=== PATIENT | female | born 1970 | race Caucasian/White ===

== ENCOUNTER 2017-03-08 10:18 | Emergency (ER) | payer BC, OTHER ==
[2017-03-08] MEDS ORDERED: SODIUM CHLORIDE 0.9% 500 ML IV STA (10:50)
[2017-03-08] MEDS ORDERED: SODIUM CHLORIDE 0.9% 1,000 ML IV STA (10:50)
[2017-03-08 11:32] LABS: Basophils % (A) 1 %; Eosinophils # (A) 0.1 k/uL (0-0.7); Eosinophils % (A) 3 %; HCT 27.8 % (34.0-46.0); HGB 7.5 gm/dL (11.4-16.0); Hypochromasia Marked; Lymphocytes # (A) 1.1 k/uL (1.0-4.8); Lymphocytes % (A) 40 %; MCHC 27.1 g/dL (31.0-37.0); MCV 73.8 fL (80.0-100.0); Mean Platelet Volume 6.3; Microcytosis Slight; Monocytes # (A) 0.2 k/uL (0-1.0); Monocytes % (A) 6 %; Neutrophils # (A) 1.2 k/uL (1.3-7.7); Neutrophils % (A) 47 %; Platelet Count 412 k/uL (150-450); RBC 3.77 m/uL (3.80-5.40); WBC 2.6 k/uL (3.8-10.6)
--- NOTE | 2017-03-08 11:32 | ED ---
General Adult HPI - General Chief complaint: Recheck/Abnormal Lab/Rx Stated complaint: LOW HEMOGLOBIN Time Seen by Provider: 03/08/17 10:41 Source: patient Mode of arrival: ambulatory Limitations: no limitations - History of Present Illness Initial comments: This 46-year-old white female presents with a complaint of anemia. She states that for the past several weeks she is felt very tired and will have occasional exertional dyspnea. She does have a history of anemia with previous blood transfusion back in 2016. She states that her hemoglobin was approximately 10.5 and Darshana of this past year. She followed up with her doctor and had blood work done 2 days ago and her hemoglobin apparently was 7.7 at that time and she was told to come to the ER yesterday. She denies any blood in her stools or black tarry stools. She states that her stool color is usually green. She was placed on iron pills. She initially was on them 3 times a day but now is on them 2 times a day. She states that she thinks that she had a presumed iron deficiency anemia. She is unsure if she is ever been checked for B12 deficiency. She's never received the B12 shots or pills. She has never followed up with a tinner helper. She does have a history of a gastric sleeve surgery. No other complaints or modifying factors. - Related Data Home Medications Medication Instructions Recorded Confirmed Albuterol Sulfate [Proventil Hfa] 2 puff INHALATION RT-Q6H PRN 12/02/15 03/08/17 Butalb/APAP/Caff 50-325-40Mg 1 tab PO TID PRN 12/02/15 03/08/17 [Fioricet 50-325-40] Venlafaxine HCl ER [Effexor XR] 150 mg PO DAILY 12/02/15 03/08/17 Zolpidem [Ambien] 5 mg PO HS 12/02/15 03/08/17 Melatonin 10 mg PO HS 02/22/16 03/08/17 Diazepam [Valium] 2 mg PO BID PRN 03/08/17 03/08/17 Eszopiclone [Lunesta] 3 mg PO HS 03/08/17 03/08/17 buPROPion XL [Wellbutrin Xl] 150 mg PO DAILY 03/08/17 03/08/17 lamoTRIgine [LaMICtal] 100 mg PO HS 03/08/17 03/08/17 Previous Rx's Medication Instructions Recorded Ferrous Sulfate [Feosol] 325 mg PO TID #90 tab 02/23/16 Allergies Allergy/AdvReac Type Severity Reaction Status Date / Time No Known Allergies Allergy Verified 03/08/17 11:29 Review of Systems ROS Statement: Those systems with pertinent positive or pertinent negative responses have been documented in the HPI. ROS Other: All systems not noted in ROS Statement are negative. Past Medical History Past Medical History: Asthma Additional Past Medical History / Comment(s): migraines, low hemoglobin 1x in the past 2015 History of Any Multi-Drug Resistant Organisms: None Reported Past Surgical History: Cholecystectomy Additional Past Surgical History / Comment(s): GASTRIC SLEEVE, TUMMY TUCK, PFO CLOSURE Past Anesthesia/Blood Transfusion Reactions: No Reported Reaction Past Psychological History: Anxiety, Bipolar, Depression Smoking Status: Never smoker Past Alcohol Use History: None Reported Past Drug Use History: None Reported - Past Family History Mother Family Medical History: Diabetes Mellitus Father Family Medical History: Diabetes Mellitus, Hypertension Brother(s) Family Medical History: Diabetes Mellitus General Exam - General Exam Comments Initial Comments: GENERAL: The patient is well nourished and well hydrated. VITAL SIGNS: Heart rate, blood pressure, respiratory rate reviewed as recorded in nurse's notes. EYES: Pupils are round and reactive. Extraocular movements are intact. No conjunctival / lid redness or swelling. ENT: No external evidence of injury, swelling, or ecchymosis. Airway is patent. Throat is clear. NECK: Nontender. No swelling or evidence of injury. No subcutaneous emphysema. Trachea is midline. No thyroid mass. HEART: Regular rate and rhythm. Good peripheral pulses. LUNGS/CHEST: Breath sounds clear and equal bilaterally. No rales, rhonchi, or wheezes. No ecchymosis, subcutaneous emphysema, or tenderness. ABDOMEN: Abdomen soft without tenderness. No palpable masses or organomegaly. No peritoneal signs. No abdominal wall swelling or ecchymosis. EXTREMITIES: No extremity tenderness. Normal muscle tone and function. No thoracolumbar tenderness. NEUROLOGIC: Sensation is grossly intact. Cranial nerve exam reveals face is symmetrical, tongue is midline, speech is clear. SKIN: No abrasions or ecchymosis is noted. No induration or masses noted. PSYCHIATRIC: Alert and oriented. Appropriate behavior and judgment. Rectal exam: No gross blood is identified. Stool was somewhat dark. Good rectal tone, no hemorrhoids. Limitations: no limitations Course Vital Signs 03/08/17 03/08/17 03/08/17 10:33 12:30 12:45 Temperature 98.6 F Pulse Rate 94 77 82 Respiratory 18 14 18 Rate Blood Pressure 122/84 122/71 115/64 O2 Sat by Pulse 100 99 99 Oximetry Medical Decision Making - Medical Decision Making The patient was seen and examined. All diagnostics were reviewed. An IV is established and she is hydrated. The hemoglobin came back low at 7.5. The Hemoccult is negative. The remainder of labs are unremarkable. The exact cause of her anemia is not definitively determined. Additional anemia studies are ordered and are pending. She is offered admission to the hospital versus transfusion in the ER and subsequently discharged with close follow-up. She would prefer to be discharged after a transfusion. It appears that there is a significant chronicity to her anemia. Is felt as though she would be stable with a transfusion and discharged. It is also felt as though she may benefit from follow-up with a tinner helper. She is agreeable with this plan. She will be transfused 2 units and subsequently discharged. - Lab Data Result diagrams: 03/08/17 11:13 03/08/17 11:13 Lab Results 03/08/17 03/08/17 03/08/17 Range/Units 11:13 11:13 11:13 WBC 2.6 L (3.8-10.6) k/uL RBC 3.77 L (3.80-5.40) m/uL Hgb 7.5 L (11.4-16.0) gm/dL Hct 27.8 L (34.0-46.0) % MCV 73.8 L (80.0-100.0) fL MCH 20.0 L (25.0-35.0) pg MCHC 27.1 L (31.0-37.0) g/dL RDW 16.0 H (11.5-15.5) % Plt Count 412 (150-450) k/uL Neutrophils % 47 % Lymphocytes % 40 % Monocytes % 6 % Eosinophils % 3 % Basophils % 1 % Neutrophils # 1.2 L (1.3-7.7) k/uL Lymphocytes # 1.1 (1.0-4.8) k/uL Monocytes # 0.2 (0-1.0) k/uL Eosinophils # 0.1 (0-0.7) k/uL Basophils # 0.0 (0-0.2) k/uL Hypochromasia Marked Microcytosis Slight PT (9.0-12.0) sec INR (<1.2) APTT (22.0-30.0) sec Sodium 141 (137-145) mmol/L Potassium 4.1 (3.5-5.1) mmol/L Chloride 106 (98-107) mmol/L Carbon Dioxide 26 (22-30) mmol/L Anion Gap 9 mmol/L BUN 16 (7-17) mg/dL Creatinine 0.74 (0.52-1.04) mg/dL Est GFR (MDRD) Af Amer >60 (>60 ml/min/1.73 sqM) Est GFR (MDRD) Non-Af >60 (>60 ml/min/1.73 sqM) Glucose 77 (74-99) mg/dL Calcium 9.5 (8.4-10.2) mg/dL Total Bilirubin 0.2 (0.2-1.3) mg/dL AST 25 (14-36) U/L ALT 19 (9-52) U/L Alkaline Phosphatase 63 (38-126) U/L Total Protein 6.9 (6.3-8.2) g/dL Albumin 4.1 (3.5-5.0) g/dL TSH 2.530 (0.465-4.680) mIU/L Stool Occult Blood Negative (Negative) Blood Type Blood Type Recheck Antibody Screen Crossmatch Spec Expiration Date 03/08/17 03/08/17 Range/Units 11:13 11:13 WBC (3.8-10.6) k/uL RBC (3.80-5.40) m/uL Hgb (11.4-16.0) gm/dL Hct (34.0-46.0) % MCV (80.0-100.0) fL MCH (25.0-35.0) pg MCHC (31.0-37.0) g/dL RDW (11.5-15.5) % Plt Count (150-450) k/uL Neutrophils % % Lymphocytes % % Monocytes % % Eosinophils % % Basophils % % Neutrophils # (1.3-7.7) k/uL Lymphocytes # (1.0-4.8) k/uL Monocytes # (0-1.0) k/uL Eosinophils # (0-0.7) k/uL Basophils # (0-0.2) k/uL Hypochromasia Microcytosis PT 9.8 (9.0-12.0) sec INR 1.0 (<1.2) APTT 20.8 L (22.0-30.0) sec Sodium (137-145) mmol/L Potassium (3.5-5.1) mmol/L Chloride (98-107) mmol/L Carbon Dioxide (22-30) mmol/L Anion Gap mmol/L BUN (7-17) mg/dL Creatinine (0.52-1.04) mg/dL Est GFR (MDRD) Af Amer (>60 ml/min/1.73 sqM) Est GFR (MDRD) Non-Af (>60 ml/min/1.73 sqM) Glucose (74-99) mg/dL Calcium (8.4-10.2) mg/dL Total Bilirubin (0.2-1.3) mg/dL AST (14-36) U/L ALT (9-52) U/L Alkaline Phosphatase (38-126) U/L Total Protein (6.3-8.2) g/dL Albumin (3.5-5.0) g/dL TSH (0.465-4.680) mIU/L Stool Occult Blood (Negative) Blood Type O Positive Blood Type Recheck No Antibody Screen NEGATIVE Crossmatch See Detail Spec Expiration Date 03/11/20173 Disposition Clinical Impression: Anemia, Fatigue Disposition: HOME SELF-CARE Condition: Good Instructions: Anemia (ED) Referrals: Pj Sanders DO [Primary Care Provider] - 1-2 days Chas Ellington MD [STAFF PHYSICIAN] - As Soon As Possible
[2017-03-08 11:46] LABS: ALT 19 U/L (9-52); AST 25 U/L (14-36); Albumin 4.1 g/dL (3.5-5.0); Alkaline Phosphatase 63 U/L (38-126); Anion Gap 9 mmol/L; Blood Urea Nitrogen 16 mg/dL (7-17); Calcium 9.5 mg/dL (8.4-10.2); Carbon Dioxide 26 mmol/L (22-30); Chloride 106 mmol/L (98-107); Glucose 77 mg/dL (74-99); Potassium 4.1 mmol/L (3.5-5.1); Sodium 141 mmol/L (137-145); Total Bilirubin 0.2 mg/dL (0.2-1.3); Total Protein 6.9 g/dL (6.3-8.2)
[2017-03-08 11:53] LABS: Partial Thromboplastin Time 20.8 sec (22.0-30.0); Prothrombin Time 9.8 sec (9.0-12.0)
[2017-03-08 12:46] VITALS: RESP 18
[2017-03-08 18:58] LABS: Iron Saturation 19.84 (12.00-45.00)
[2017-03-08 19:04] VITALS: BP 128/88; PULSE 92; TEMP 99.3
== END 2017-03-08 19:04 | disposition home or self-care (01) ==
LOC: EC 10:18
DX: D64.9 Anemia, unspecified (principal); R53.83 Other fatigue; F31.9 Bipolar disorder, unspecified; F41.9 Anxiety disorder, unspecified; Z79.899 Other long term (current) drug therapy
CPT/HCPCS: 36415; 93005; 86900; 86901; 83921; 80053; 83540; 83550; 84443; 85025; 85610; 85730; 86850; 86920; 82272; 99284; 96360; 96361 ×7; P9016

== ENCOUNTER 2021-05-25 23:15 | Emergency (ER) | payer BC ==
[2021-05-26 00:03] VITALS: BP 119/76; PULSE 101; RESP 18; TEMP 98.7
[2021-05-26] MEDS ORDERED: PROPARACAINE 0.5% OPHTH DROPS 15 ML BTL LEFT EYE STA (00:53)
[2021-05-26] MEDS ORDERED: FLUORESCEIN STRIPS 1 MG STRIP BOTH EYES ONE (00:53)
--- NOTE | 2021-05-26 01:07 | ED ---
Eye Problem HPI - General Chief complaint: Eye Problems Stated complaint: swollen eye Time Seen by Provider: 05/26/21 00:48 Source: patient Mode of arrival: ambulatory - History of Present Illness Initial comments: This is a pleasant 50-year-old female presents to emergency department complaining of left eye irritation and tearing. Patient had laser skin surgery actually [facility]. Patient states she had the Subnovii procedure. Patient was apparently using a safety device however she believes that laser has caused a burn to her eye. Denies any right eye symptoms. This occurred at 5:00. Patient is complaining of diminished visual acuity of the left eye. No headache, no fever or chills, no speech problems. No sore throat or hearing problems. No ear pain. No sore throat or difficulty with speech, no neck pain, no chest pain or shortness of breath, no abdominal pain, no nausea or vomiting, no changes in urination or bowel movements, no numbness or tingling, no extremity pain, no skin rashes or lesions. MD chief complaint: eye pain, eye redness - Related Data Home Medications Medication Instructions Recorded Confirmed Albuterol Sulfate [Proventil Hfa] 2 puff INHALATION RT-Q6H PRN 12/02/15 11/26/17 Butalb/APAP/Caff 50-325-40Mg 1 tab PO TID PRN 12/02/15 11/26/17 [Fioricet 50-325-40] Melatonin 10 mg PO HS 02/22/16 11/26/17 buPROPion XL [Wellbutrin Xl] 150 mg PO DAILY 03/08/17 11/26/17 diazePAM [Valium] 2 mg PO BID PRN 03/08/17 11/26/17 lamoTRIgine [LaMICtal] 100 mg PO HS 03/08/17 11/26/17 Previous Rx's Medication Instructions Recorded Ferrous Sulfate [Feosol] 325 mg PO TID #90 tab 02/23/16 Allergies Allergy/AdvReac Type Severity Reaction Status Date / Time No Known Allergies Allergy Verified 05/26/21 00:03 Review of Systems ROS Statement: Those systems with pertinent positive or pertinent negative responses have been documented in the HPI. ROS Other: All systems not noted in ROS Statement are negative. Past Medical History Past Medical History: Asthma Additional Past Medical History / Comment(s): migraines, low hemoglobin 1x in the past 2016 History of Any Multi-Drug Resistant Organisms: None Reported Past Surgical History: Cholecystectomy Additional Past Surgical History / Comment(s): GASTRIC SLEEVE, TUMMY TUCK, PFO CLOSURE Past Anesthesia/Blood Transfusion Reactions: No Reported Reaction Past Psychological History: Anxiety, Bipolar, Depression Smoking Status: Never smoker Past Alcohol Use History: None Reported Past Drug Use History: None Reported - Past Family History Mother Family Medical History: Diabetes Mellitus Father Family Medical History: Diabetes Mellitus, Hypertension Brother(s) Family Medical History: Diabetes Mellitus General Exam General appearance: alert, in distress Head exam: Present: atraumatic, normocephalic, normal inspection Eye exam: Present: normal appearance, PERRL, EOMI, conjunctival injection, other (Note the patient had Lasix surgery in the left eye and wears a contact lens in the right eye normally. Normally the patient's vision in the right eye is much worse than the left.). Absent: scleral icterus, periorbital swelling Pupils: Present: normal accommodation, other (Slit lamp examination reveals forcing uptake to the nasal aspect of the cornea. 25%, avoid central vision, no foreign body. Eyelids everted. No hypopyon or hyphema) Expanded Eyelids: Normal Inspection: Bilateral Pupils: Regular, Round: Bilateral Sclera/Conjunctival: Injection: Left Anterior chamber: Normal Inspection: Bilateral Posterior chamber: Deferred: Bilateral Visual acuity (R) = 20/: 50 Visual acuity (L) = 20/: 50 With correction: No ENT exam: Present: normal exam, mucous membranes moist Neck exam: Present: normal inspection. Absent: tenderness, meningismus, lymphadenopathy Respiratory exam: Present: normal lung sounds bilaterally. Absent: respiratory distress, wheezes, rales, rhonchi, stridor Cardiovascular Exam: Present: regular rate, normal rhythm, normal heart sounds. Absent: systolic murmur, diastolic murmur, rubs, gallop, clicks GI/Abdominal exam: Present: soft, normal bowel sounds. Absent: distended, tenderness, guarding, rebound, rigid Extremities exam: Present: normal inspection, full ROM, normal capillary refill. Absent: tenderness, pedal edema, joint swelling, calf tenderness Back exam: Present: normal inspection Neurological exam: Present: alert, oriented X3, CN II-XII intact Psychiatric exam: Present: normal affect, normal mood Skin exam: Present: warm, dry, intact, normal color. Absent: rash Course Vital Signs 05/25/21 23:58 Temperature 98.7 F Pulse Rate 101 H Respiratory 18 Rate Blood Pressure 119/76 O2 Sat by Pulse 99 Oximetry Medical Decision Making - Medical Decision Making Patient had laser facial surgery for wrinkles at [facility]. Subsequently has sustained a laser burn to her left thigh. Mild diminished visual acuity the left eye. Patient has significant fluorescein uptake overlying the nasal aspect of the cornea, probably 25% of the cornea. This does avoid the central vision. The case was discussed in detail with ED attending physician. Presentation, findings, treatment plan discussed in detail. We'll use erythromycin ointment, atropine drops. Patient told to follow-up in the morning without fail at ophthalmology. Given on-call ophthalmology follow-up information. Patient instructed to keep her eyes shut as much as possible. Patient voices understanding, all questions answ ered Patient was told to return to the ER for any signs or symptoms worsen. Told to return immediately if any other problems arise. All questions answered. Treatment plan discussed. Patient in agreement Every effort has been made to ensure accuracy of this dictation. However, due to the limitations of electronic medical records and dictation devices, errors in charting still occur. Disposition Clinical Impression: Corneal burn Narrative: Corneal burn, left eye Disposition: HOME SELF-CARE Condition: Stable Instructions (If sedation given, give patient instructions): Corneal Flash Boss (ED) Additional Instructions: Erythromycin ophthalmic ointment, 1 cm to the affected eye every 6 hours until being seen by ophthalmology. Atropine eyedrops 1 drop every 4 hours as needed for discomfort. You can also use acetaminophen and/or ibuprofen. Call tomorrow morning to set up a follow-up appointment with the dredge pipe operator. Is patient prescribed a controlled substance at d/c from ED?: No Referrals: Renny Hernandez MD [STAFF PHYSICIAN] - 05/26/21 8:00 am Time of Disposition: 01:32
[2021-05-26] MEDS ORDERED: ATROPINE OPHTH SOLN 1% 5ML BTL LEFT EYE ONE (01:30)
[2021-05-26] MEDS ORDERED: ERYTHROMYCIN 5 MG/GM OPHTH OINT 3.5 GM TUBE LEFT EYE ONE (01:30)
== END 2021-05-26 01:46 | disposition home or self-care (01) ==
LOC: EC 23:15
DX: T26.12XA Burn of cornea and conjunctival sac, left eye, initial encounter (principal); J45.909 Unspecified asthma, uncomplicated; F31.9 Bipolar disorder, unspecified; F41.9 Anxiety disorder, unspecified; Z79.51 Long term (current) use of inhaled steroids; Z79.899 Other long term (current) drug therapy
CPT/HCPCS: 99283